=== PATIENT | male | born 1975 | race Caucasian/White ===

== ENCOUNTER 2021-06-01 09:09 | Emergency (ER) | payer BC ==
[~2021-06-01] VITALS: Ht 175.3 cm; Wt 75.0 kg
[2021-06-01 09:36] VITALS: BP 139/89
[2021-06-01] MEDS ORDERED: predniSONE 20 MG TABLET PO ONE (10:15)
[2021-06-01] MEDS ORDERED: FAMOTIDINE 20 MG TABLET PO ONE (10:15)
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
--- NOTE | 2021-06-01 10:36 | RAD ---
EXAM: LEFT HAND 3 VIEWS. HISTORY: Fall, pain. COMPARISON: None. FINDINGS: No acute fractures are identified. A chronic fracture deformity is suspected along the fift h proximal phalangeal head. A ring projects over the fourth proximal phalanx. Alignment is maintained . Joint spaces are maintained. IMPRESSION: 1. No acute fracture. Correlate for a chronic healed fracture of the fifth proximal phalangeal head. Electronically signed by: Santi Duggan MD (06/01/2021 10:34 AM) [id number]
== END 2021-06-01 10:54 | disposition home or self-care (01) ==
LOC: ER 09:09
DX: S69.92XA Unspecified injury of left wrist, hand and finger(s), initial encounter (principal); W18.39XA Other fall on same level, initial encounter; Y93.89 Activity, other specified; Y92.89 Other specified places as the place of occurrence of the external cause; Y99.8 Other external cause status
CPT/HCPCS: 73130; 99283-25